=== PATIENT | male | born 1945 | race African-American/Black ===

== ENCOUNTER → 2016-05-13 | Outpatient (CLI) | payer OTHER ==
--- NOTE | ~2016-05-13 | CT14 ---
[facility] A Service of [facility] & [facility] RADIOLOGY TEXT RESULTS PATIENT: KRIST[facility] GENTILE [facility] UN[facility] #: [id number] AGE: [address]: YNES MORSE APRN SEX: M ORDER DR: [id number] [facility] [address] [place], [place] [address] [id number] O MR#: [id number] #: [id number] NAME: KRISTY GENTILE : 1945 SEX: M STUDY DATE/TIME: 05/13/2016 14:22 UNIT: [facility] ROOM: STUDY DESCRIPTION: CT Angio Abdomen and Pelvis Attending Physician: Ynes Morse Referring Physician: Ynes Morse Ordering Physician: Jazmin Medeiros Primary Care Physician: Ana Paula Hernandez M.D. MEDICAL IMAGING REPORT This report is preliminary unless electronic signature is present EXAM CT angiogram of the abdomen and pelvis with bilateral lower extremity runoff INDICATIONS Painful legs below the knees for 6 months to a year. Patient reports coldness in the legs for 3 years. This was initially performed as a CT angiogram of the abdomen and pelvis. Patient had to be rescanned as the desired test was actually a CT angiogram with bilateral lower extremity runoff. TECHNIQUE Axial CT images were obtained from the dome of the diaphragm through both lower extremities following administration of intravenous contrast material. Following this, 3-D formatted images were obtained. This CT exam was performed with one or more of the following radiation dose reduction techniques: automatic exposure control, adjustment of mA and/or kV according to patient size, and iterative reconstruction. FINDINGS Images through the lung bases are clear. There is probably at least some mild narrowing at the origin of the celiac axis. I think the superior mesenteric artery appears widely patent. Some additional plaque is noted at the origin of the renal arteries bilaterally. There are 2 right renal arteries and a single left renal artery and I do think there is probably at least some mild narrowing at the origin of the left renal artery. The superior mesenteric artery is patent. Atherosclerotic calcification continues into the iliac vessels. Densely calcified plaque is seen within the common iliac arteries. I do think there is no focal narrowing of the right common iliac artery proximally. I would estimate this narrowing at about 50% with some milder narrowing suspected within the left common iliac artery. The internal STS. [facility] A Service of [facility] & [facility] RADIOLOGY TEXT RESULTS PATIENT: KRISTY GENTILE LOCATION: [facility] : 47 UNIT #: [id number] AGE: [address]: YNES MORSE PUBLIC HEALTH CLINICAL NURSE SPECIALIST SEX: M ORDER DR: iliac arteries are patent bilaterally. Patient does have some plaque within the distal right external iliac artery probably resulting in some mild narrowing. The left external iliac artery is widely patent. Eccentric calcified plaque is seen within the right common femoral artery and I do think there is some significant narrowing at least moderate in severity. Right profunda femoris artery is patent. I do think there is severe stenosis involving the distal right superficial femoral artery, although I think it probably remains patent. Additional significant disease is seen within the right popliteal artery which I think may be a focally occluded within the above-knee segment. Patient's right anterior tibial, posterior tibial and peroneal vessels are all continuous to the foot. Additional severe disease is seen within the left common femoral artery. Left profunda femoris appears to be patent. There is severe disease at the left superficial femoral artery, which appears to occlude within the proximal thigh. It does reconstitute probably within the mid thigh, although again it is heavily diseased. Additional severe disease is seen within the left above-knee popliteal artery, although I think it remains patent and is on the contralateral side. The left anterior tibial, posterior tibial and peroneal vessels are all continuous to the foot. There is a small hiatal hernia. Liver and gallbladder appear normal. Spleen, proximal small bowel are within normal limits as are the adrenal glands and pancreas. There is probably a nonobstructing stone within the left kidney. No free fluid or adenopathy is seen within the abdomen. There is a tiny fat-containing umbilical hernia. The prostate gland protrudes into the base of the bladder. There is a small fat-containing inguinal hernia noted on the right. No aggressive osseous abnormalities are seen. IMPRESSION 1. Extensive atherosclerotic calcification of the abdominal aorta. I think this does extend into the origin of the left renal artery and probably results in some mild narrowing. 2. 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 3. 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 There is multifocal extensive severe disease of the right superficial femoral artery as well as of the right popliteal artery. The patient's calf vessels are continuous to the foot. 4. As on the contralateral side, there is a severe disease at the left common femoral artery. Patient is also noted have very significant multifocal disease of the left superficial femoral artery which also shows a focal occlusion proximally although it does reconstitute. Additional significant disease is seen within the left popliteal artery, but again the calf vessels are continuous to STS. [facility] A Service of [facility] RADIOLOGY TEXT RESULTS PATIENT: KRISTY GENTILE LOCATION: [facility] : 47 UNIT #: [id number] AGE: [address]: YNES MORSE PUBLIC HEALTH CLINICAL NURSE SPECIALIST SEX: M ORDER DR: the foot. Please see the body of the report for any other additional incidental findings. Dictated by... Angie Pardo M.D. THIS IS AN ELECTRONICALLY VERIFIED REPORT Angie Pardo M.D. at 05/17/2016 9:09 AM AFF/to TD: 05/16/2016 21:28 JOB #: [id number] MEDICAL IMAGING REPORT Page 1 of 1 COPY
[2016-05-13 15:01] LABS: POC - CREATININE 1.38 mg/dL (0.64-1.27); POC - GFR >60.0 mL/min (>60)
== END | disposition home or self-care (01) ==
LOC: CCAT 12:50
PROVIDERS: Nurse Practitioner Family
DX: I70.219 Atherosclerosis of native arteries of extremities with intermittent claudication, unspecified extremity (principal); I70.0 Atherosclerosis of aorta; I77.9 Disorder of arteries and arterioles, unspecified
CPT/HCPCS: 73706; 74174; 82565; Q9967